=== PATIENT | male | born 1985 | race Two or more races ===

== ENCOUNTER 2019-05-26 23:34 | Emergency (ER) | payer MEDICAID ==
[~2019-05-26] VITALS: Ht 162.6 cm; Wt 81.6 kg
--- NOTE | 2019-05-27 00:05 | NUR ---
ED Nurse Note: Patient walked in to ER c/o abdominal pain radiating to chest x 1 month. Denies N/V/D. Patient presented with pain 10/10, AAO x4, VSS at ths time.
[2019-05-27 00:15] VITALS: BP 140/78
[2019-05-27] MEDS ORDERED: HYDROcodone/Acetamin 5/325 tab ORAL ONE (00:30)
--- NOTE | 2019-05-27 00:43 | NUR ---
ED Nurse Note: urine collected; sent down to lab. patient down to ct with serology technician
[2019-05-27 00:50] LABS: APPEARANCE,URINE CLEAR; BILIRUBIN, URINE NEGATIVE (NEGATIVE); COLOR,URINE PALE YELLOW; GLUCOSE, URINE (UA) NEGATIVE (NEGATIVE); KETONES,URINE NEGATIVE (NEGATIVE); LEUKOCYTE ESTERASE ,URINE NEGATIVE (NEGATIVE); NITRITE,URINE NEGATIVE (NEGATIVE); PH,URINE 6.5 (4.5-8.0); PROTEIN,URINE NEGATIVE (NEGATIVE); UROBILINOGEN,URINE NORMAL MG/DL (0.0-1.0)
--- NOTE | 2019-05-27 01:15 | Diagnostic Imaging Report ---
Indication: Abdominal pain for one day Technique: Spiral acquisitions obtained through the abdomen and pelvis. No oral contrast utilized, per emergency room physician request No IV contrast utilized, per referring physician request.. Multiplanar reconstructions were generated. Total dose length product 302 mGycm. CTDIvol(s) 5 mGy. Dose reduction achieved using automated exposure control Comparison: None Findings: The appendix is normal. No evidence of diverticulosis or diverticulitis. No small bowel distention. No free or loculated intraperitoneal gas or fluid is evident. Distal esophagus, stomach, duodenum are unremarkable. Lack of IV contrast limits assessment of the solid organs. The liver, gallbladder, bile ducts, pancreas, spleen, adrenals, kidneys are unremarkable. No renal or ureteral calculi, hydronephrosis, or hydroureter demonstrated. No pelvic mass or adenopathy. No mesenteric mass or adenopathy. Groundglass opacity is demonstrated at both lung bases diffusely. The bones are unremarkable. Impression: Basilar pulmonary parenchymal groundglass opacity. This is a nonspecific finding, could indicate mild pulmonary edema, compressive atelectatic changes, or postinflammatory changes, among other possibilities No acute process otherwise This essentially agrees with the preliminary interpretation provided overnight by [facility] teleradiology service. The CT scanner at [facility] is accredited by the [employer] and the scans are performed using protocols designed to limit radiation exposure to as low as reasonably achievable to attain images of sufficient resolution adequate for diagnostic evaluation.
[2019-05-27] MEDS ORDERED: CIPROFLOXACIN500 M2 ORAL (01:29)
[2019-05-27] MEDS ORDERED: METRONIDAZOLE500 MG ORAL (01:29)
[2019-05-27] MEDS ORDERED: Ciprofloxacin 500mg tab ORAL ONE (01:30)
[2019-05-27] MEDS ORDERED: metroNIDAZOLE 500mg tab ORAL ONE (01:30)
--- NOTE | 2019-05-27 01:30 | Emergency Room Report ---
History of Present Illness General Chief Complaint: Abdominal Pain Source: Patient Present Illness HPI Is a 34-year-old male with no past medical history. He presents with complaint abdominal pain. Onset for about a month and a half now. He has been to to out of hospital for this. He went to [facility] and also [facility]. He said lab works were done and was told was normal. No CT scan. No follow-up with any vp digital marketing social media and crm. Pain is sharp and intermittent pain. He said pain is every day. No fever chills but no nausea vomiting or diarrhea. No bloody stool. Pain is 7 out of 10. Allergies: Coded Allergies: No Known Allergies (Unverified , 05/26/19) Patient History Past Medical History: see triage record, old chart reviewed Past Surgical History: none Pertinent Family History: none Social History: Denies: smoking Immunizations: other Reviewed Nursing Documentation: PMH: Agreed; PSxH: Agreed Nursing Documentation-PMH Past Medical History: No Stated History Review of Systems Eye: Denies: eye pain, blurred vision ENT: Denies: ear pain, nose congestion, throat swelling Respiratory: Denies: cough, shortness of breath Cardiovascular: Denies: chest pain, palpitations Gastrointestinal: Reports: abdominal pain; Denies: diarrhea, nausea, vomiting Musculoskeletal: Denies: back pain, joint pain Skin: Denies: rash Neurological: Denies: headache, numbness Endocrine: Denies: increased thirst, increased urine Hematologic/Lymphatic: Denies: easy bruising All Other Systems: negative except mentioned in HPI Physical Exam Vital Signs Date Time Temp Pulse Resp B/P (MAP) Pulse Ox O2 Delivery O2 Flow Rate FiO2 05/26/19 23:48 98.1 75 14 140/78 (98) 98 Room Air Vitals with high blood pressure Sp02 EP Interpretation: reviewed, normal General Appearance: well appearing, no apparent distress, alert Head: normocephalic, atraumatic Eyes: bilateral eye PERRL, bilateral eye EOMI ENT: hearing grossly normal, normal pharynx Neck: full range of motion, supple, no meningismus Respiratory: chest non-tender, lungs clear, normal breath sounds Cardiovascular #1: regular rate, rhythm, no murmur Gastrointestinal: normal bowel sounds, non tender, no mass, no organomegaly, no bruit, non-distended Musculoskeletal: back normal, normal range of motion, gait/station normal Psychiatric: mood/affect normal Medical Decision Making Diagnostic Impression: Primary Impression: Abdominal pain Qualified Codes: R10.9 - Unspecified abdominal pain Additional Impression: Enteritis ER Course Patient with abdominal pain. This is chronic in nature. CT scan showed inflammatory changes versus infectious. Because of duration, most likely inflammatory. Will go ahead and put him on antibiotics however. He would benefit from a colonoscopy. No evidence of any acute abdomen. Will discharge home. CT/MRI/US Diagnostic Results CT/MRI/US Diagnostic Results : Imaging Test Ordered: CT abdomen pelvis Impression Read by radiologist. Normal appendix. Fluid is seen throughout the small bowel with questionable areas of mild wall thickening along with shotty mesenteric lymph nodes. Last Vital Signs Date Time Temp Pulse Resp B/P (MAP) Pulse Ox O2 Delivery O2 Flow Rate FiO2 05/26/19 23:48 98.1 75 14 140/78 (98) 98 Room Air Status: improved Disposition: HOME, SELF-CARE Condition: Stable Scripts Metronidazole* (FLAGYL*) 500 Mg Tablet 500 MG ORAL BID, #14 TAB Prov: Johnny Banks MD 05/27/19 Ciprofloxacin Hcl* (CIPROFLOXACIN HCL*) 500 Mg Tablet 500 MG ORAL Q12H, #14 TAB 0 Refills Prov: Johnny Banks MD 05/27/19 Additional Instructions: Follow-up with your doctor in 7 days. You will need a referral to see a vp digital marketing social media and crm. Return if symptoms worsen. Johnny Banks MD May 27, 2019 01:30
[2019-05-27 01:40] VITALS: BP 140/78
--- NOTE | 2019-05-27 01:46 | NUR ---
ED Nurse Note: Pt cleared by health care Provider for discharge. DC instructions/prescription was given and explained to pt and verbalized understanding of teachings. All medical deviecs such as ID band removed. Pt is AAO x4, ambulatory and left with all personal belongings.
[2019-06-10] MEDS ORDERED: ZOFRAN4 M3 ORAL (13:43)
[2019-06-10] MEDS ORDERED: FAMOTIDINE20 MG ORAL (13:43)
== END 2019-05-27 01:40 | disposition home or self-care (01) ==
LOC: EMR 23:58
DX: K52.9 Noninfective gastroenteritis and colitis, unspecified (principal); R10.9 Unspecified abdominal pain
CPT/HCPCS: 74176; 81003; Z7502; 99284

== ENCOUNTER → 2019-06-10 | Emergency (ER) | payer MEDICAID ==
[~2019-06-10] VITALS: Ht 170.2 cm; Wt 67.1 kg
[~2019-06-10] MED LIST: CIPROFLOXACIN500 M2 ORAL; FAMOTIDINE20 MG ORAL; METRONIDAZOLE500 MG ORAL; Omnipaque-300 100ml vial INJ PRN; ZOFRAN4 M3 ORAL
[2019-06-10 11:31] VITALS: BP 127/80
--- NOTE | 2019-06-10 11:34 | Emergency Room Report ---
History of Present Illness General Chief Complaint: Abdominal Pain Source: Patient Present Illness HPI Patient is a 34-year-old male denies any significant past medical history presents to the ER complaining of abdominal burning for the past month. Patient states that he was seen here last month was given prescriptions but complains of persistent pain. He complains of nausea but denies any vomiting, diarrhea or constipation. Patient states that sometimes his stool comes out on [place]. He denies any fever or chills. He denies any recent travel. He denies any dysuria or hematuria. He states that he has not followed up with the clinic or primary care physician. Allergies: Coded Allergies: No Known Allergies (Unverified , 05/26/19) Patient History Past Medical History: none Past Surgical History: none Social History: Denies: smoking, alcohol use, drug use Nursing Documentation-[facility] Past Medical History: No Stated History Review of Systems All Other Systems: negative except mentioned in HPI Physical Exam Vital Signs Date Time Temp Pulse Resp B/P (MAP) Pulse Ox O2 Delivery O2 Flow Rate FiO2 06/10/19 11:02 98.4 60 17 127/80 (96) 99 Room Air Sp02 EP Interpretation: reviewed, normal General Appearance: no apparent distress, alert, GCS 15, non-toxic Head: normocephalic, atraumatic Eyes: bilateral eye normal inspection, bilateral eye PERRL ENT: hearing grossly normal, normal pharynx, no angioedema, normal voice Neck: full range of motion, supple/symm/no masses Respiratory: chest non-tender, lungs clear, normal breath sounds, speaking full sentences Cardiovascular #1: regular rate, rhythm, no edema Gastrointestinal: normal bowel sounds, soft, non-distended, no guarding, no rebound, other Rectal: deferred Genitourinary: normal inspection, no CVA tenderness Musculoskeletal: back normal, normal range of motion, calf tenderness, gait/ station normal, non-tender Neurologic: alert, motor strength/tone normal, oriented x3, sensory intact, responsive, speech normal Psychiatric: judgement/insight normal, memory normal, mood/affect normal, no suicidal/homicidal ideation Skin: no rash Lymphatic: no adenopathy Medical Decision Making Diagnostic Impression: Primary Impression: Abdominal pain ER Course Patient's vital signs are stable. He has no elevated white blood cell count. He is afebrile. CT demonstrates no acute intra-abdominal pathology. Patient being discharged with Zofran and Pepcid. I have advised him to follow-up with a flight paramedic for further treatment and evaluation. I have also given him the number of a local clinic to follow-up at. After discussing risks and benefits of further diagnostics, treatment plans, as well as indications for and risks of admission, the patient is agreeable to being discharged home. I have explained that their evaluation and treatment in the emergency department today is an important step towards them achieving better health but that their evaluation today is not intended to replace further evaluation and treatment by a physician in their local clinic. I have explained that while the current findings suggest no immediate life threatening emergency they will require further evaluation and treatment by a physician of their choice in their area. They understand that it will be necessary for them to review the final reports of their ED visit with their clinic physician. We have reviewed indications for return to the Emergency Department. I have explained that additional time may need to pass and/or additional testing as an outpatient may be necessary before a definitive diagnosis can be made. They tell me they are willing to follow up as instructed within the timeframe I recommend. They appear to understand what we discussed. Additionally they understand that if they are unable to be seen by an outpatient physician they are welcome, and in fact should, return to the Emergency Department for a repeat evaluation. The patient is stable at time of discharge. Last Vital Signs Date Time Temp Pulse Resp B/P (MAP) Pulse Ox O2 Delivery O2 Flow Rate FiO2 06/10/19 11:31 98.4 17 127/80 99 Room Air 06/10/19 11:31 60 Disposition: HOME, SELF-CARE Condition: Stable Scripts Ondansetron* (ZOFRAN*) 4 Mg Tablet 4 MG ORAL Q6H PRN for Nausea & Vomiting, #10 TAB Prov: Linda Pastor M.D. 06/10/19 Famotidine* (Pepcid 20mg tablet*) 20 Mg Tablet 20 MG ORAL DAILY, #30 TAB 0 Refills Prov: Linda Pastor M.D. 06/10/19 Additional Instructions: Patient discharged in stable improved condition with outpatient follow-up and strict return precautions Linda Pastor M.D. Jun 10, 2019 11:34
[2019-06-10 11:49] LABS: ANION GAP 13 mmol/L (5-15); BLOOD UREA NITROGEN 9 mg/dL (7-18); CALCIUM 9.2 MG/DL (8.5-10.1); CARBON DIOXIDE 25 MMOL/L (21-32); CHLORIDE 106 MMOL/L (98-107); CREATININE 0.9 MG/DL (0.55-1.30); SODIUM 144 MMOL/L (136-145)
[2019-06-10 11:53] LABS: ALANINE AMINOTRANSFERASE 41 U/L (12-78); ALBUMIN 3.9 G/DL (3.4-5.0); ALBUMIN/GLOBULIN RATIO 1.2 (1.0-2.7); ALKALINE PHOSPHATASE 97 U/L (46-116); ASPARTATE AMINO TRANSFERASE 19 U/L (15-37); BILIRUBIN,TOTAL 0.4 MG/DL (0.2-1.0)
[2019-06-10 11:55] LABS: BASOPHILS % (AUTO) 0.7 % (0.0-2.0); EOSINOPHILS % (AUTO) 1.1 % (0.0-3.0); HEMATOCRIT 46.7 % (42.0-52.0); HEMOGLOBIN 15.7 G/DL (14.2-18.0); LYMPHOCYTES % (AUTO) 19.2 % (20.0-45.0); MEAN CORPUSCULAR VOLUME 83 FL (80-99); MONOCYTES % (AUTO) 5.5 % (1.0-10.0); NEUTROPHILS % (AUTO) 73.5 % (45.0-75.0); PLATELET COUNT 217 K/UL (150-450); RED BLOOD COUNT 5.66 M/UL (4.70-6.10); RED CELL DISTRIBUTION WIDTH 12.2 % (11.6-14.8); WHITE BLOOD COUNT 10.8 K/UL (4.8-10.8)
[2019-06-10 12:00] LABS: APPEARANCE,URINE CLEAR; COLOR,URINE PALE YELLOW
[2019-06-10 12:01] LABS: BILIRUBIN, URINE NEGATIVE (NEGATIVE); GLUCOSE, URINE (UA) NEGATIVE (NEGATIVE); KETONES,URINE NEGATIVE (NEGATIVE); NITRITE,URINE NEGATIVE (NEGATIVE); PH,URINE 6.5 (4.5-8.0); PROTEIN,URINE NEGATIVE (NEGATIVE)
[2019-06-10 12:02] LABS: LEUKOCYTE ESTERASE ,URINE NEGATIVE (NEGATIVE); UROBILINOGEN,URINE NORMAL MG/DL (0.0-1.0)
--- NOTE | 2019-06-10 13:40 | Diagnostic Imaging Report ---
INDICATION: Abdominal pain TECHNIQUE: Continuous helical transaxial imaging of the abdomen and pelvis was obtained from the lung bases to the pubic symphysis during intravenous contrast administration. Coronal 2-D reformats were also obtained. Study obtained in a Siemens sensation [address] Automatic Exposure Control was utilized. Total Dose length Product (DLP): 242.[address] Dose Index Volume (CTDIvol): 4.6 mGy COMPARISON: None FINDINGS: Lungs: The visualized lung bases are clear. Liver: Unremarkable Gallbladder/biliary system: No gallstones are identified. There is no evidence of intrahepatic or extrahepatic biliary ductal dilatation. Spleen: Unremarkable Pancreas: Unremarkable Kidneys/Bladder: No hydronephrosis identified. Both kidneys enhance symmetrically. The urinary bladder is unremarkable.. Adrenal glands: Unremarkable Aorta/IVC: Unremarkable Bowel: There is no evidence of bowel obstruction. Peritoneum: There is no free fluid. Bones: Unremarkable IMPRESSION: No acute findings The CT scanner at [facility] is accredited by the [employer] and the scans are performed using dose optimization techniques as appropriate to a performed exam including Automatic Exposure control.
== END | disposition home or self-care (01) ==
LOC: EMR 11:30
DX: R10.9 Unspecified abdominal pain (principal); R11.0 Nausea
CPT/HCPCS: 36415; 74177; 80053; 81003; 83690; 83735; 85025; 96361; 96374; 96375; J2405; J7030; Q9967; S0028; Z7502; 99284